=== PATIENT | male | born 1985 | race Caucasian/White ===

== ENCOUNTER → 2017-04-17 | Emergency (ER) | payer OTHER ==
[~2017-04-17] VITALS: Ht 177.8 cm; Wt 108.9 kg
[~2017-04-17] MED LIST: AZOR 5-20 MG T1 EACH; DILTIAZEM 24HR180 MG; JARDIANCE25 MG; KETOROLAC TROME10 MG PO; KOMBIGLYZE XR1 EAC2; TAMS0.4C PO; ULTRAM50 MG
== END | disposition home or self-care (01) ==
LOC: ER 21:00
DX: N20.1 Calculus of ureter (principal)

== ENCOUNTER → 2022-03-25 | Outpatient (CLI) | payer OTHER | END | disposition home or self-care (01) | LOC: LAB 18:51 | PROVIDERS: ATTEND Obstetrics & Gynecology | DX: Z20.828 Contact with and (suspected) exposure to other viral communicable diseases (principal); Z20.818 Contact with and (suspected) exposure to other bacterial communicable diseases ==